=== PATIENT | female | born 2000 | race African-American/Black ===

== ENCOUNTER 2021-12-18 16:40 | Emergency (ER) | payer MEDICAID, SELFPAY ==
[2021-12-18 17:29] LABS: Pregnancy Test - Urine (BHCG) POSITIVE (Negative)
[2021-12-18 17:30] LABS: Pregu Control Background? CLEAR/WHITE (CLR/WHITE); Pregu Control Bar Appear? YES (CONTROL BAR); Specific Gravity 1.012 (1.002-1.036)
== END 2021-12-18 17:49 | disposition home or self-care (01) ==
LOC: NAV ERS 16:40
DX: O98.511 Other viral diseases complicating pregnancy, first trimester (principal); A08.4 Viral intestinal infection, unspecified; Z3A.01 Less than 8 weeks gestation of pregnancy
CPT/HCPCS: 81025; 99284